=== PATIENT | female | born 1970 | race Caucasian/White ===

== ENCOUNTER 2021-08-12 14:13 | Emergency (ER) | payer OTHER, SELFPAY ==
[2021-08-12] VITALS (7 sets, daily range): BP systolic 100–148; BP diastolic 72–89; PULSE 88–128; RESP 10–21; TEMP 36.3; O2SAT 99–100
--- NOTE | ~2021-08-12 | XR_ITS ---
XR chest 1V portable DATE: 08/12/2021 16:22 INDICATION: Tachycardia. Nausea. TECHNIQUE: Portable upright AP chest on 08/12/2021 at 1618 hours COMPARISON: None FINDINGS: Normal heart size. No hilar or mediastinal enlargement. No pulmonary infiltrate or consolid ation, pleural effusion or pulmonary vascular congestion or pneumothorax. IMPRESSION: No active cardiopulmonary disease Reviewed, dictated and finalized at location A.
--- NOTE | 2021-08-12 14:13 | ECG_ITS ---
Measurements Intervals [place] Rate: 136 P: 58 UT: 130 QRS: -17 QRSD: 86 T: 43 QT: 304 QTc: 458 Interpretive Statements SINUS TACHYCARDIA NONSPECIFIC ST ABNORMALITY ABNORMAL ECG NO PREVIOUS ECG AVAILABLE FOR COMPARISON Electronically Signed On 08-12-2021 15:25:16 CDT by Adolph Dale M.D.
[2021-08-12 15:05] LABS: Basophils Absolute Auto 0.1 K/mm3 (0.0-0.1); Basophils Percent Auto 0.4 % (0.2-1.2); Eosinophils Absolute Auto 0.2 K/mm3 (0-0.3); Eosinophils Percent Auto 1.2 % (0-4.4); Hematocrit 44.6 % (37.0-47.0); Hemoglobin 14.7 g/dL (12.0-15.0); Immature Granulocyte Absolute 0.05 K/mm3 (0.00-0.031); Immature Granulocyte Percent A 0.4 % (0-0.5); Lymphocytes Absolute Auto 2.22 K/mm3 (0.9-3.2); Lymphocytes Percent Auto 17.1 % (18.3-44.2); Mean Corpuscular Hemoglobin 32.4 pg (26-34); Mean Corpuscular Volume 98.2 fl (80-100); Mean Platelet Volume 9.6 fl (7.4-10.4); Monocytes Absolute Auto 0.7 K/mm3 (0.1-0.6); Monocytes Percent Auto 5.1 % (2.6-8.5); Neutrophils Absolute Auto 9.9 K/mm3 (1.3-6.7); Neutrophils Percent Auto 75.8 % (45.5-73.1); Platelet Count Result 316 k/mm3 (150-375); Red Blood Count 4.54 M/mm3 (4.2-5.4); Red Cell Distribution Width 12.5 % (11.5-14.5)
[2021-08-12] MEDS: SODIUM CHLORIDE 0.9% IV 1,000 ML 999 ML IV CONT ×2 (15:09→16:37)
[2021-08-12 15:11] LABS: Alanine Aminotransferase 20 U/L (4-35); Alkaline Phosphatase 60 U/L (38-126); Anion Gap 11 mmol/L (8-16); Aspartate Amino Transferase 30 U/L (14-36); Bilirubin,Total 0.5 mg/dL (0.2-1.3); Blood Urea Nitrogen 20 mg/dL (7-17); Calcium 9.4 mg/dL (8.4-10.2); Carbon Dioxide 23 mmol/L (22-30); Chloride 101 mmol/L (98-107); Estimated CRCL calculation 94 ml/min; Estimated Glomerular Filt Rate > 60; Glucose 205 mg/dL (65-110); INR 0.9; Magnesium 1.9 mg/dL (1.6-2.3); Prothrombin Time 11.9 Seconds (11.1-14.7); Sodium 135 mmol/L (137-145)
[2021-08-12 15:12] LABS: Partial Thromboplastin Time 24.7 SECONDS (22.3-36.8)
[2021-08-12 15:15] LABS: D Dimer 0.31 ug/mL (<0.48)
[2021-08-12 15:23] LABS: Troponin I < 0.012 ng/mL (0.000-0.034)
--- NOTE | 2021-08-12 15:45 | ED.GENADULT ---
HPI - General Adult General Chief complaint: Arrhythmia/Palpitations Stated complaint: INCREASED HR Time Seen by Provider: 08/12/21 14:44 Source: RN notes reviewed History of Present Illness HPI narrative: Patient presents emergency department from home for rapid heart rate. Patient states that she was doing laundry and she hated walked upstairs and began feeling her heart was racing. She states at that time the heart rate fell he was just getting faster and faster she sat down she states her heart rate did improve for approximately 2 to 3 minutes and then again began to race again she states that with that she did feel mildly short of breath she denied any fevers or chills, chest pain, shortness of breath, abdominal pain nausea vomiting or any other symptoms. She states she drinks approximately 2 cups of coffee a day but has had no change in her caffeine intake. She denies any energy drinks or supplements Related Data Home Medications Medication Instructions Recorded Confirmed triamcinolone acetonide applic TOPICAL 08/12/21 Allergies Allergy/AdvReac Type Severity Reaction Status Date / Time No Known Allergies Allergy Unknown Verified 03/06/03 17:46 Review of Systems Review of Systems: Gen.: Denies fevers or chills ENT: Denies congestion Respiratory: Ports shortness of breath with heart racing CV: Reports heart racing denies chest pain GI: Denies abdominal pain nausea, emesis or diarrhea Musculoskeletal: Denies back pain or muscle pain Neuro: Denies numbness, tingling, weakness or focal weakness Skin: Denies rash Except as documented, all other systems reviewed and negative PMFSH Past Medical History Medical History (Updated 08/12/21 @ 17:01 by Tony Ragland DO) Patient denies significant medical history Family History Family History (Updated 11/03/15 @ 14:42 by DOCTOR UNKNOWN) Father Hypertension, Onset Age: 63 Patient's father is , Onset Age: 63 Acute myocardial infarction, Onset Age: 63 Mother Hypertension Family history of type 2 diabetes mellitus Other Family history of allergic disorder Family history of attention deficit hyperactivity disorder (ADHD) Family history of gastrointestinal disorder Social History Social History (Updated 08/12/21 @ 15:46 by Tony Ragland DO) Smoking status: Never smoker Alcohol intake: current Exam Narrative: APPEARANCE: No acute distress, nontoxic, resting in bed EYES: EOMI HEENT: Normocephalic, atraumatic, OMM RESPIRATORY: No respiratory distress Clear to auscultation bilaterally with no rhonchi wheezing or rales. CARDIOVASCULAR: Regular rate and rhythm without murmurs rubs or gallops. ABDOMINAL: Soft, nontender, nondistended, no rebound or guarding MUSCULOSKELETAl: Moves all extremities. No clubbing, cyanosis or edema. NEURO: Awake and alert. Following commands, speech normal, no focal deficits SKIN:: Warm, dry. No rashes lesions or abrasions PSYCHIATRIC: Normal affect/mood, Course Course Emergency Course: Patient's heart rate has returned to normal in the emergency department. She is asymptomatic discussed with the patient lab results we discussed need for possible Holter monitor as outpatient Discussed with patient results of workup and diagnosis. Discussed need for follow-up with primary care, proper use of medication, and reasons to return to the emergency department. Patient understands and agrees to current treatment plan Vital Signs Vital signs: Vital Signs Temperature 97.3 F L 08/12/21 14:17 Pulse Rate 128 H 08/12/21 14:17 Respiratory Rate 20 08/12/21 14:17 Blood Pressure 148/83 H 08/12/21 14:17 Pulse Oximetry 100 08/12/21 14:17 Temperature 97.3 F L 08/12/21 14:17 Pulse Rate 116 H 08/12/21 15:01 Respiratory Rate 10 L 08/12/21 15:01 Blood Pressure 135/89 08/12/21 15:01 Pulse Oximetry 99 08/12/21 15:01 Medical Decision Making Vital Signs Vital Signs: Vital Signs
--- NOTE | 2021-08-12 16:10 | ECG_ITS ---
Measurements Intervals [place] Rate: 78 P: 19 NM: 131 QRS: -19 QRSD: 93 T: 4 QT: 362 QTc: 414 Interpretive Statements SINUS RHYTHM LOW QRS VOLTAGE IN PRECORDIAL LEADS [QRS DEFLECTION < 1.0 mV IN CHEST LEADS] ABNORMAL ECG COMPARED TO ECG 08/12/2021 14:16:27 SINUS RHYTHM NOW PRESENT Electronically Signed On 08-13-2021 12:29:07 CDT by Adolph Dale M.D.
== END 2021-08-12 17:30 | disposition home or self-care (01) ==
PROVIDERS: Emergency Provider Emergency Medicine
DX: R00.0 Tachycardia, unspecified (principal); R00.2 Palpitations; R94.31 Abnormal electrocardiogram [ECG] [EKG]
CPT/HCPCS: 36415; 71045; 80053; 83735; 84443; 84484; 85025; 85380; 85610; 85730; 93005; 96360; 96361; 99284; J7030

== ENCOUNTER 2024-04-20 15:09 | Outpatient (CLI) | payer OTHER, SELFPAY ==
--- NOTE | ~2024-04-20 | MM_ITS ---
EXAMINATION: MM screening cata BI w lukas HISTORY: Screening TECHNIQUE: Craniocaudal and mediolateral oblique 3-D tomosynthesis images were obtained and synthetic 2-D images were generated. CAD analysis was submitted and interpreted. COMPARISON: No prior mammogram is available for comparison at this institution. BREAST PARENCHYMAL COMPOSITION: Not dense: There are scattered areas of fibroglandular density. FINDINGS: There is no evidence of suspicious mass, calcification, or architectural distortion to sugg est malignancy in either breast. There has been no suspicious interval change. IMPRESSION: 1. No mammographic evidence of malignancy. 2. Recommend routine screening mammography in one year. BI-RADS Category 1: Negative Reviewed, dictated and finalized at location B. [employer]
== END 2024-04-20 15:10 | disposition home or self-care (01) ==
DX: Z12.31 Encounter for screening mammogram for malignant neoplasm of breast (principal)
CPT/HCPCS: 77063; 77067